=== PATIENT | male | born 1975 | race Caucasian/White ===

== ENCOUNTER → 2016-08-03 | Outpatient (REF) | payer BC | LOC: M SMT 17:08 | PROVIDERS: ATTEND Nurse Practitioner Women's Health | DX: R10.9 Unspecified abdominal pain (principal) ==

== ENCOUNTER → 2016-08-11 | Outpatient (CLI) | payer BC ==
--- NOTE | 2016-08-11 09:38 | REP ---
CT ABDOMEN AND PELVIS WITHOUT IV OR ORAL CONTRAST: Renal stone protocol. HISTORY: Flank pain. History of kidney stones. No comparison imaging. FINDINGS: The preliminary digital rewards consultant radiograph is unremarkable. The lung bases are clear. The liver and the spleen are normal in size. There is a small low-density liver lesion on the right measuring 8 mm in diameter. This may be a cyst or hemangioma. No other focal liver lesion is appreciated. The gallbladder is unremarkable. No pancreatic abnormality is seen. No adrenal lesion is seen. There are multiple intrarenal stones in each kidney. No hydronephrosis is seen on either side. On the right, there are five to six calculi distributed mostly in the lower pole. The largest of these measures 6 mm in greatest diameter. On the left, there are six to seven calculi. The largest of these measures 4 mm in greatest diameter. There is no evidence of ureteral stone on either side. Seminal vesicles, prostate, and urinary bladder are unremarkable. A normal appendix is seen in the right lower abdomen. Small and large intestinal bowel loops are unremarkable. There is some mild diverticulosis affecting the left colon. No abdominal wall defect is seen. Bone window settings show no significant bony abnormality. IMPRESSION: Bilateral intrarenal nephrolithiasis. No hydronephrosis seen. No ureteral or bladder calculi seen. Signed by Rafael Rojas MD 08/11/2016 01:18 P
== END ==
LOC: M RAD 08:48
PROVIDERS: ATTEND Nurse Practitioner Women's Health
DX: R10.9 Unspecified abdominal pain (principal); N20.0 Calculus of kidney; Z87.442 Personal history of urinary calculi

== ENCOUNTER → 2016-09-07 | Day surgery (SDC) | payer BC ==
[~2016-09-07] VITALS: Ht 172.7 cm; Wt 79.4 kg
[~2016-09-07] MED LIST: FLOM5CAP PO; LIDOCAINE 2% INJ 100 MG/5 ML SDV (FOR ANES.) As Ordered ONE; LR 1,000 ML IV ONE; MIDAZOLAM INJ 2 MG/2 ML VIAL (J2250) As Ordered ONE; OXYC1TAB23 PO; PERCOCET PO; PROPOFOL 200 MG/20 ML VIAL As Ordered ONE; VITA100067 PO; ceFAZolin 2 GM/D5W 50 ML IV BAG (J0690) As Ordered ONE; fentaNYL 100 MCG/2 ML INJECTION (J3010) As Ordered ONE
--- NOTE | 2016-09-07 07:39 | REP ---
Clinical: Nephrolithiasis. Technique: supine view of the abdomen and pelvis. Findings: 3 mm calculus in the lower pole right kidney. Further evaluation of the urinary tract system is limited by interposed bowel gas. No evidence for bowel obstruction. No organomegaly. Skeletal structures intact. Impression: 3 mm nonobstructing right renal calculus. Further evaluation of the urinary check system is limited. Signed by Almas Jones MD 09/07/2016 07:30 A
[2016-09-07 09:00] VITALS: BP 139/94
--- NOTE | 2016-09-07 18:35 | RO ---
DATE OF PROCEDURE: 09/07/2016 PREOPERATIVE DIAGNOSIS: Right kidney stone. POSTOPERATIVE DIAGNOSIS: Right kidney stone. PROCEDURE: Right extracorporeal shock wave lithotripsy. FINDINGS: A 6 mm right kidney stone. SURGEON: Dr. Helio Jarrett PROFESSOR OF [employer]IMINAL JUSTICE: None. ANESTHESIA: MAC. COMPLICATIONS: None. ESTIMATED BLOOD LOSS: N/A. HISTORY OF PRESENT ILLNESS: A 41-year-old male patient who has a 6 mm right mid pole kidney stone. The patient has consented for a right extracorporeal shock wave lithotripsy. DESCRIPTION OF PROCEDURE: In a patient under MAC anesthesia in supine position after finding the stone with x-ray, C-arm fluoroscopy, he got a total of 2500 shock wave lithotripsies at a power of 1-20. The first 100 shock waves were done at level 1-5, the following 100 shock waves were done at level 5-10 and the final 2300 shock waves were done at level of 10-20. There were no complications of surgery. The patient tolerated the procedure well. PLAN: The patient will go home today with Flomax and with Percocet 5/325 mg one tablet by mouth every 6 hours as needed for pain, which he has in his house. He will followup at [facility] in about 2-3 weeks.
== END | disposition home or self-care (01) ==
LOC: M SDC 06:28
PROVIDERS: ATTEND Urology
DX: N20.0 Calculus of kidney (principal); F17.210 Nicotine dependence, cigarettes, uncomplicated; M54.9 Dorsalgia, unspecified; R06.83 Snoring; Z79.891 Long term (current) use of opiate analgesic
CPT/HCPCS: 50590; 74000; J0690; J2250; J3010

== ENCOUNTER → 2016-09-29 | Outpatient (CLI) | payer BC ==
[~2016-09-29] MED LIST changes: -LIDOCAINE 2% INJ 100 MG/5 ML SDV (FOR ANES.) As Ordered ONE; -LR 1,000 ML IV ONE; -MIDAZOLAM INJ 2 MG/2 ML VIAL (J2250) As Ordered ONE; -PROPOFOL 200 MG/20 ML VIAL As Ordered ONE; -ceFAZolin 2 GM/D5W 50 ML IV BAG (J0690) As Ordered ONE; -fentaNYL 100 MCG/2 ML INJECTION (J3010) As Ordered ONE
--- NOTE | 2016-09-29 10:33 | REP ---
KUB ABDOMEN AND PELVIS: Two KUB films of abdomen and pelvis performed and compared to prior study of 09/07/2016. Bowel gas and fecal material limit evaluation of the renal shadows. There does appear to be a tiny calcific density overlying the lower pole of the left renal shadow and two are seen overlying the upper pole of the left renal shadow. No abnormal pelvic calcifications are seen. The bowel gas pattern is normal with no evidence of bowel obstruction. IMPRESSION: Three tiny calcifications overlying the left renal shadow, two overlying the upper pole and one overlying the lower pole. Signed by De Mckee MD 09/29/2016 03:27 P
== END ==
LOC: M SMT 09:05
PROVIDERS: ATTEND Nurse Practitioner Women's Health
DX: N20.0 Calculus of kidney (principal)

== ENCOUNTER → 2016-11-02 | Outpatient (CLI) | payer OTHER, BC ==
--- NOTE | 2016-11-17 13:27 | SLEEPCENT ---
DATE OF PROCEDURE: 11/02/2016 REFERRING PROVIDER: INTERPRETATION: Nocturnal recording polysomnography was performed for the evaluation of sleep apnea syndrome symptoms in this patient with excessive daytime sleepiness, insomnia, snoring, observed apnea, gasping respirations, morning headaches, nonrestorative sleep. A total of 8 hours and 8 minutes of data was reviewed with 385 minutes of sleep identified. Sleep latency was prolonged at 63 minutes. Rapid eye movement (REM) latency was 106 minutes. No slow-wave sleep was identified. Sleep efficiency was 80.5%. Electrocardiogram (EKG) shows normal sinus rhythm with an average heart rate of 62 beats per minute. No epileptiform discharge observed. There were three respiratory events identified of 10 seconds in duration or longer. The events were predominantly central events. This gives an apnea-hypopnea index (AHI) of 0.5. Respiratory event related arousal (RERA) index is 0.6, given a total respiratory disturbance index (RDI) of 1.1. Mean oxygen saturation for the study was 95% with a minimum recorded value of 91%. Arousal index was 5.9. Periodic limb movement index was 0.6. IMPRESSION: Snoring, minimal. No evidence of significant sleep disordered breathing. RECOMMENDATIONS: Recommend consideration for other possible causes of his symptoms, including, but not limited to medications, sleep insufficiency, narcolepsy or other.
== END ==
LOC: M SLEEP 19:49
PROVIDERS: ATTEND Internal Medicine Pulmonary Disease
DX: G47.30 Sleep apnea, unspecified (principal)

== ENCOUNTER → 2020-01-09 | Outpatient (REF) | payer BC, OTHER ==
[~2020-01-09] MED LIST changes: +FLOM0.4C39 PO; -FLOM5CAP PO
== END ==
LOC: M SMT 13:30
PROVIDERS: ATTEND Urology
DX: Z30.2 Encounter for sterilization (principal)

== ENCOUNTER → 2020-04-23 | Outpatient (REF) | payer BC, OTHER ==
[2020-04-23 10:37] LABS: SEMEN APPEARANCE OPAQUE (OPAQUE); SEMEN VISCOSITY LIQUID (LIQUID); WBC CONCENTRATION >1 M/ml (<=1 M/ml)
== END ==
LOC: M SMT 10:20
PROVIDERS: ATTEND Urology
DX: Z30.2 Encounter for sterilization (principal)

== ENCOUNTER → 2022-04-02 | Outpatient (CLI) | payer BC, OTHER ==
[~2022-04-02] MED LIST changes: +ALPR0.5T3; +ESSETAB4 PO; +METO200T28 PO; +VITA100093 PO
== END ==
LOC: M LABSMTC 11:31
PROVIDERS: ATTEND Anesthesiology
DX: Z01.812 Encounter for preprocedural laboratory examination (principal); Z11.52 Encounter for screening for COVID-19

== ENCOUNTER 2022-04-06 07:11 | Day surgery (SDC) | payer OTHER ==
[~2022-04-06] VITALS: Ht 172.7 cm; Wt 84.8 kg
[~2022-04-06 07:11] MED LIST changes: +NS 1,000 ML IV ONE
[2022-04-06] MEDS ORDERED: propofoL 200 MG/20 ML VIAL As Ordered ONE (09:01)
[2022-04-06] MEDS ORDERED: LIDOCAINE 2% 100MG/5ML SDV (FOR ANES.) As Ordered ONE (09:01)
[2022-04-06 09:25] VITALS: BP 120/67
== END 2022-04-06 09:32 | disposition home or self-care (01) ==
LOC: M OPP 07:11
PROVIDERS: ATTEND Surgery
DX: Z12.11 Encounter for screening for malignant neoplasm of colon (principal); K63.9 Disease of intestine, unspecified; Z79.02 Long term (current) use of antithrombotics/antiplatelets; Z79.899 Other long term (current) drug therapy; I10 Essential (primary) hypertension; F32.9 Major depressive disorder, single episode, unspecified; F41.9 Anxiety disorder, unspecified; Z87.442 Personal history of urinary calculi

== ENCOUNTER → 2023-04-24 | Outpatient (CLI) | payer OTHER ==
[~2023-04-24] MED LIST changes: -NS 1,000 ML IV ONE; +PROHANCE 279.3MG/ML 15ML VIAL As Ordered ONE; +PROHANCE 279.3MG/ML 5ML VIAL As Ordered ONE
== END ==
LOC: M RAD 10:18
PROVIDERS: ATTEND Student in an Organized Health Care Education/Training Program
DX: H91.93 Unspecified hearing loss, bilateral (principal)
CPT/HCPCS: 70553; A9576

== ENCOUNTER → 2023-07-04 | Outpatient (CLI) | payer OTHER ==
[~2023-07-04] MED LIST changes: +METO200T15 PO; -METO200T28 PO; -PROHANCE 279.3MG/ML 15ML VIAL As Ordered ONE; -PROHANCE 279.3MG/ML 5ML VIAL As Ordered ONE
== END ==
LOC: M SLEEP 20:00
PROVIDERS: ATTEND Internal Medicine
DX: G47.33 Obstructive sleep apnea (adult) (pediatric) (principal)

== ENCOUNTER → 2023-12-23 | Outpatient (CLI) | payer OTHER | LOC: M SLEEP 20:00 | PROVIDERS: ATTEND Internal Medicine | DX: G47.33 Obstructive sleep apnea (adult) (pediatric) (principal) ==

== ENCOUNTER → 2023-12-28 | Outpatient (REF) | LOC: M PLAIMG 08:36 | PROVIDERS: ATTEND Internal Medicine | DX: R06.02 Shortness of breath (principal) ==

== ENCOUNTER → 2024-04-11 | Outpatient (REF) | payer OTHER | LOC: M LAB REF 14:43 | PROVIDERS: ATTEND Surgery | DX: D17.1 Benign lipomatous neoplasm of skin and subcutaneous tissue of trunk (principal) ==